=== PATIENT | female | born 1970 | race Caucasian/White ===

== ENCOUNTER 2016-10-06 21:49 | Emergency (ER) | payer OTHER ==
[~2016-10-06] VITALS: Ht 167.6 cm; Wt 72.6 kg
--- NOTE | ~2016-10-06 | CR112 ---
[facility] A Service of [facility] & [facility] RADIOLOGY TEXT RESULTS PATIENT: MORALES CARTER LOCATION: SED : 70 UNIT #: [id number] AGE: [address]: REYMUNDO JONES SEX: F ORDER DR: [id number] [address] [address] [id number] MR#: [id number] Acc #: [id number] NAME: MORALES CARTER : 1970 SEX: F STUDY DATE/TIME: 10/06/2016 22:23 UNIT: SED ROOM: STUDY DESCRIPTION: CR Finger 2 View 4Th Lt Attending Physician: Reymundo Jones Aprn Ordering Physician: Reymundo Jones Aprn Primary Care Physician: Hesham Will M.D. MEDICAL IMAGING REPORT This report is preliminary unless electronic signature is present. EXAM Left fourth finger 3 views 10/06/2016 HISTORY Left fourth finger pain and swelling, purse caught finger and twisted finger at 08:00 p.m. tonight. FINDINGS 3 views of the left fourth finger demonstrate no fracture. The bones are normally mineralized. There is soft tissue swelling about the fourth phalanx. No foreign body is seen. IMPRESSION Soft tissue swelling about the left fourth phalanx. No evidence of fracture or radiopaque foreign body. Dictated by... Isidro Hurst M.D. THIS IS AN ELECTRONICALLY VERIFIED REPORT Isidro Hurst M.D. at 10/07/2016 2:15 PM KRT/ashley TD: 10/07/2016 11:19 JOB #: [id number] MEDICAL IMAGING REPORT Page 1 of 1
[~2016-10-06 21:49] MED LIST: CELEXA PO; VISTARIL PO
[2016-10-06] MEDS ORDERED: GLUCOPHAGE500 MG PO (22:02)
[2016-10-06] MEDS ORDERED: LIPITOR40 MG PO (22:02)
[2016-10-06] MEDS ORDERED: BP MED (22:02)
[2016-10-07] MEDS ORDERED: IBUPROFEN PO (00:23)
== END 2016-10-07 00:24 | disposition home or self-care (01) ==
LOC: SED 21:49
DX: S60.042A Contusion of left ring finger without damage to nail, initial encounter (principal); I10 Essential (primary) hypertension; E11.9 Type 2 diabetes mellitus without complications; Z88.1 Allergy status to other antibiotic agents; Z88.5 Allergy status to narcotic agent; X58.XXXA Exposure to other specified factors, initial encounter; Y92.009 Unspecified place in unspecified non-institutional (private) residence as the place of occurrence of the external cause
CPT/HCPCS: 73140; 99283